=== PATIENT | female | born 1990 | race African-American/Black ===

== ENCOUNTER 2019-08-21 21:19 | Emergency (ER) | payer MEDICAID ==
[~2019-08-21] VITALS: Ht 149.9 cm; Wt 43.0 kg
[2019-08-22 11:41] VITALS: BP 100/59
== END 2019-08-22 11:46 | disposition home or self-care (01) ==
LOC: ER 21:19
DX: O21.8 Other vomiting complicating pregnancy (principal); Z3A.21 21 weeks gestation of pregnancy
CPT/HCPCS: 76805; 99285